=== PATIENT | female | born 1955 | race Caucasian/White ===

== ENCOUNTER → 2018-03-15 16:01 | Day surgery (SDC) | payer BC | END | disposition home or self-care (01) | LOC: OR 16:01 | PROVIDERS: ATTEND Anesthesiology | DX: G97.1 Other reaction to spinal and lumbar puncture (principal); A69.20 Lyme disease, unspecified; I45.2 Bifascicular block; H93.11 Tinnitus, right ear; H91.91 Unspecified hearing loss, right ear | CPT/HCPCS: 62273 ==